=== PATIENT | female | born 1990 | race American Indian/Alaskan Native ===

== ENCOUNTER 2017-04-05 22:02 | Emergency (ER) | payer MEDICAID, OTHER ==
[2017-04-05 22:10] VITALS: BMI 53.0
--- NOTE | 2017-04-05 22:16 | ED PDOC ---
Arrival/HPI - General Time Seen by Provider: 04/05/17 22:10 Historian: Patient - History of Present Illness Narrative History of Present Illness (Text): 04/05/17 22:11 27 y/o female, no significant pmh, nkda, c/o possible tampon inside her vaginal canal x 1 day. Pt. stated that her period just started today, use one tampon and put it inside of her, stated that she didn't remove it and can not find, no vaginal discomfort, no pelvic or abdominal pain, no nausea or vomiting, no fever or chills, no headache or night sweat, no dizziness, no other medical or psychological complaints. Past Medical History - Provider Review Nursing Documentation Reviewed: Yes - Psychiatric Hx Substance Use: No - Surgical History Hx Section: Yes - Anesthesia Hx Anesthesia: Yes Hx Anesthesia Reactions: No Hx Malignant Hyperthermia: No Family/Social History - Physician Review Nursing Documentation Reviewed: Yes Family/Social History: Unknown Family HX Smoking Status: Never Smoked Hx Alcohol Use: Yes Hx Substance Use: No Allergies/Home Meds Allergies/Adverse Reactions: Allergies No Known Allergies Allergy (Verified 07/21/16 08:39) Home Medications: Home Meds Medication Instructions Recorded Confirmed No Known Home Med 07/21/16 04/05/17 Review of Systems - Review of Systems Constitutional: absent: Fatigue, Fevers Eyes: absent: Vision Changes ENT: absent: Hearing Changes Respiratory: absent: SOB, Cough Cardiovascular: absent: Chest Pain Gastrointestinal: absent: Abdominal Pain, Nausea, Vomiting Genitourinary Female: absent: Dysuria, Frequency, Hematuria, Urine Output Changes, Vaginal Bleeding, Vaginal Discharge Musculoskeletal: absent: Arthralgias, Back Pain Skin: absent: Rash, Pruritis Neurological: absent: Headache, Dizziness Physical Exam Vital Signs Temp Pulse Resp BP Pulse Ox 04/05/17 22:23 98.7 F 90 20 189/112 H 98 - Systems Exam Head: Present: Atraumatic, Normocephalic Pupils: Present: PERRL Extroacular Muscles: Present: EOMI Conjunctiva: Present: Normal Mouth: Present: Moist Mucous Membranes Neck: Present: Normal Range of Motion Respiratory/Chest: Present: Clear to Auscultation, Good Air Exchange. No: Respiratory Distress, Accessory Muscle Use Cardiovascular: Present: Regular Rate and Rhythm, Normal S1, S2. No: Murmurs Abdomen: Present: Normal Bowel Sounds. 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 There is no visible or palpable foreign bodies. ). No: Vaginal Discharge, Vaginal Bleeding, Vaginal Lesions, Adenexal Tenderness, Adenexal Mass, Cervical Motion Tendernes, Odor Back: Present: Normal Inspection Upper Extremity: Present: Normal Inspection. No: Cyanosis, Edema Lower Extremity: Present: Normal Inspection. No: Edema Neurological: Present: GCS=15, CN II-XII Intact, Speech Normal Skin: Present: Warm, Dry, Normal Color. No: Rashes Psychiatric: Present: Alert, Oriented x 3, Normal Insight, Normal Concentration Medical Decision Making ED Course and Treatment: 04/05/17 22:18 -Urine hcg negative -Vaginal speculum inspection at 8 different angles with no visible foreign bodies, no palpable foreign bodies, pt. feels comfortable and better now which she request to be discharge home. -Discharge home with education on follow up with your own pmd and obgyn within 2 days, return to the ER for any new or worsening signs or symptoms. - PA / INSPECTOR OF WEIGHTS AND MEASURES / Resident Statement / has reviewed & agrees with the documentation as recorded. Disposition/Present on Arrival - Present on Arrival Any Indicators Present on Arrival: No History of DVT/PE: No History of Uncontrolled Diabetes: No Urinary Catheter: No History of Decub. Ulcer: No History Surgical Site Infection Following: None - Disposition Have Diagnosis and Disposition been Completed?: Yes Diagnosis: Normal pelvic exam Disposition: HOME/ ROUTINE Disposition Time: 22:56 Patient Plan: Discharge Condition: IMPROVED Additional Instructions: -Discharge home with education on follow up with your own pmd and obgyn within 2 days, return to the ER for any new or worsening signs or symptoms. Referrals: PCP,ALICE [Primary Care Provider] - Follow up with primary Cleveland Evans DO [Staff Provider] - Follow up with primary Forms: WORK NOTE
[2017-04-05 22:30] VITALS: PULSE 90; TEMP 98.7
[2017-04-05 23:41] VITALS: BP 142/95
[2017-04-05 23:49] VITALS: RESP 18; O2SAT 99
== END 2017-04-05 23:49 | disposition home or self-care (01) ==
LOC: ED 22:02
DX: Z01.419 Encounter for gynecological examination (general) (routine) without abnormal findings (principal)

== ENCOUNTER 2018-01-13 11:46 | Emergency (ER) | payer OTHER ==
[2018-01-13 12:21] VITALS: BMI 58.5
[2018-01-13 12:38] VITALS: RESP 18; TEMP 98.2
--- NOTE | 2018-01-13 12:47 | ED PDOC ---
Arrival/HPI - General Chief Complaint: Breast Problem Time Seen by Provider: 01/13/18 12:24 Historian: Patient - History of Present Illness Narrative History of Present Illness (Text): 01/13/18 12:36 27yo female with no past medical history who present with complaint of breast soreness and pruritic rash. Notes that her LMP was December 24, but she is having symptoms of . States that the home test she took at home was negative, but she thinks she might be . she also noted that she had tubal ligation in 2014. States the rash started yesterday. Denies any new lotion /detergent/food/medication/, any other inciting factors, SOB, tongue swelling, chest pain, abdominal pain, urinary symptoms, breast dimple, nipple discharge, any other complaint. Past Medical History - Provider Review Nursing Documentation Reviewed: Yes - Infectious Disease Hx of Infectious Diseases: None - Gastrointestinal Hx Gall Bladder Disease: Yes - Psychiatric Hx Substance Use: No - Surgical History Hx Section: Yes - Anesthesia Hx Anesthesia: Yes Hx Anesthesia Reactions: No Hx Malignant Hyperthermia: No Family/Social History - Physician Review Nursing Documentation Reviewed: Yes Family/Social History: Unknown Family HX Smoking Status: Never Smoked Hx Alcohol Use: Yes Hx Substance Use: No Allergies/Home Meds Allergies/Adverse Reactions: Allergies No Known Allergies Allergy (Verified 01/13/18 12:25) Review of Systems - Physician Review All systems were reviewed & negative as marked: Yes - Review of Systems Constitutional: Normal Eyes: Normal ENT: Normal Respiratory: Normal Cardiovascular: Normal Gastrointestinal: Normal Genitourinary Female: Normal Musculoskeletal: Normal Skin: Rash, Pruritis Neurological: Normal Endocrine: Normal Hemo/Lymphatic: Normal Psychiatric: Normal Physical Exam Vital Signs Reviewed: Yes Vital Signs Temp Pulse Resp BP Pulse Ox 01/13/18 13:45 76 18 136/88 98 01/13/18 11:49 98.2 F 85 18 147/91 H 97 Temperature: Afebrile Blood Pressure: Normal Pulse: Regular Respiratory Rate: Normal Appearance: Positive for: Well-Appearing, Non-Toxic, Comfortable Pain Distress: None Mental Status: Positive for: Alert and Oriented X 3 - Systems Exam Head: Present: Atraumatic, Normocephalic Pupils: Present: PERRL Extroacular Muscles: Present: EOMI Conjunctiva: Present: Normal Mouth: Present: Moist Mucous Membranes Neck: Present: Normal Range of Motion Respiratory/Chest: Present: Clear to Auscultation, Good Air Exchange. No: Respiratory Distress, Accessory Muscle Use Cardiovascular: Present: Regular Rate and Rhythm, Normal S1, S2. No: Murmurs Abdomen: No: Tenderness, Distention, Peritoneal Signs Back: Present: Normal Inspection Upper Extremity: Present: Normal Inspection. No: Cyanosis, Edema Lower Extremity: Present: Normal Inspection. No: Edema Neurological: Present: GCS=15, CN II-XII Intact, Speech Normal Skin: Present: Warm, Dry, Rashes (Few papular skin colored rash noted on b/l arm ), Normal Color Psychiatric: Present: Alert, Oriented x 3, Normal Insight, Normal Concentration Medical Decision Making ED Course and Treatment: 01/13/18 19:48 PT was not in any distress in emergency department . She noted that her LMP was December 24, which makes chance of to be very small. Upreg was negative and result was DW the pt. She was advised to follow up with her CREMATOR for a repeat test when she miss her period. She was treated with prednisone and Benadryl for the dermatitis. - Lab Interpretations Lab Results: Lab Results 01/13/18 12:50: Urine HCG, Qual Negative - Medication Orders Current Medication Orders: Discontinued Medications Diphenhydramine HCl (Benadryl) 25 mg PO STAT STA Stop: 01/13/18 12:52 Last Admin: 01/13/18 13:30 Dose: 25 mg Prednisone (Prednisone Tab) 40 mg PO STAT STA Stop: 01/13/18 12:52 Last Admin: 01/13/18 13:30 Dose: 40 mg Disposition/Present on Arrival - Present on Arrival Any Indicators Present on Arrival: No History of DVT/PE: No History of Uncontrolled Diabetes: No Urinary Catheter: No History of Decub. Ulcer: No History Surgical Site Infection Following: None - Disposition Have Diagnosis and Disposition been Completed?: Yes Diagnosis: Bilateral mastodynia, Contact dermatitis Disposition: HOME/ ROUTINE Disposition Time: 13:30 Patient Plan: Discharge Condition: STABLE Discharge Instructions (ExitCare): Contact Dermatitis (DC), Mastalgia (DC), Chest Pain (ED) Additional Instructions: Follow up with your CREMATOR/Tool Room Supervisor Return to emergency department for any new or worsening symptoms Prescriptions: DiphenhydrAMINE [Benadryl] 25 mg PO Q4 #20 cap predniSONE [Prednisone] 20 mg PO DAILY #4 tab Referrals: Marissa Bell MD [Primary Care Provider] - Follow up with primary Kilo Lopez MD [Staff Provider] - Follow up with primary Forms: [employer] (Nepalese)
[2018-01-13] MEDS ORDERED: DiphenhydrAMINE 12.5 mg/5 ml LIQ UD (5 ml) PO STA (12:51)
[2018-01-13 13:46] VITALS: BP 136/88; PULSE 76; O2SAT 98
== END 2018-01-13 13:45 | disposition home or self-care (01) ==
LOC: ED 11:46
DX: L25.9 Unspecified contact dermatitis, unspecified cause (principal); N64.4 Mastodynia

== ENCOUNTER 2018-06-22 13:32 | Emergency (ER) | payer OTHER ==
[2018-06-22 13:35] VITALS: BMI 58.5
[2018-06-22] MEDS ORDERED: DiphenhydrAMINE 50 mg/ml Inj IVP STA (14:34)
[2018-06-22] MEDS ORDERED: Sodium Chloride 0.9% 1,000 ML IV STA (14:35)
--- NOTE | 2018-06-22 14:39 | ED PDOC ---
Arrival/HPI - General Chief Complaint: Headache Historian: Patient - History of Present Illness Narrative History of Present Illness (Text): 06/22/18 14:36 28 y/o female, pmh including chronic migraine, nkda, c/o headache x 3 days with no fall or trauma. Throbbing rt. unilateral, aggravated by bright light and loug sound, feels nausea, no neck stiffness, no recent traveling, no fever or chills, no palpitation, no chest pain or shortness of breath, no other medical or psychological complaints. Past Medical History - Provider Review Nursing Documentation Reviewed: Yes - Infectious Disease Hx of Infectious Diseases: None - Gastrointestinal Hx Gall Bladder Disease: Yes - Psychiatric Hx Substance Use: No - Surgical History Hx Section: Yes - Anesthesia Hx Anesthesia: Yes Hx Anesthesia Reactions: No Hx Malignant Hyperthermia: No Family/Social History - Physician Review Nursing Documentation Reviewed: Yes Family/Social History: Unknown Family HX Smoking Status: Current Some Days Smoker Hx Alcohol Use: Yes Frequency of alcohol use: Socially Hx Substance Use: No Allergies/Home Meds Allergies/Adverse Reactions: Allergies No Known Allergies Allergy (Verified 06/22/18 14:19) Review of Systems - Review of Systems Constitutional: absent: Fatigue, Fevers Eyes: absent: Vision Changes ENT: absent: Hearing Changes Respiratory: absent: SOB, Cough Cardiovascular: absent: Chest Pain Gastrointestinal: Nausea. absent: Abdominal Pain, Vomiting Neurological: Headache Psychiatric: absent: Anxiety, Depression, Suicidal Ideation Physical Exam - Systems Exam Head: Present: Atraumatic, Normocephalic, Other (no temporal artery tenderness and no jaw claudication). No: Tenderness, Contusion, Swelling, Ecchymosis, Abrasion, Laceration Pupils: Present: PERRL Extroacular Muscles: Present: EOMI Conjunctiva: Present: Normal Ears: Present: NORMAL TM, Normal Canal. No: Erythema Mouth: Present: Moist Mucous Membranes Pharnyx: No: ERYTHEMA, EXUDATE, TONSILS ENLARGED Nose (External): Present: Atraumatic. No: Abrasion, Contusion, Laceration Nose (Internal): Present: Normal Inspection, No Active Bleeding. No: Rhinorrhea, Septal Hematoma, Epistaxis Neck: Present: Normal Range of Motion, Trachea Midline. No: Meningeal Signs, MIDLINE TENDERNESS, Paraspinal Tenderness, Lymphadenopathy Respiratory/Chest: Present: Clear to Auscultation, Good Air Exchange. No: Respiratory Distress, Accessory Muscle Use Cardiovascular: Present: Regular Rate and Rhythm, Normal S1, S2. No: Murmurs Abdomen: No: Tenderness, Distention, Peritoneal Signs Back: Present: Normal Inspection Upper Extremity: Present: Normal Inspection. No: Cyanosis, Edema Lower Extremity: Present: Normal Inspection. No: Edema Neurological: Present: GCS=15, CN II-XII Intact, Speech Normal, Motor Func Grossly Intact, Gait Normal, Memory Normal, Other (no drift, no focal neurological deficits. ) Skin: Present: Warm, Dry, Normal Color. No: Rashes Psychiatric: Present: Alert, Oriented x 3, Normal Insight, Normal Concentration Medical Decision Making ED Course and Treatment: 06/22/18 14:38 -labs -ct head -IVF/benadryl/reglan/tylenol -observe and reassess 06/22/18 17:44 -Urine hcg is negative -Labs show no acute findings -Mg within normal limit -UA show no UTI -CT head No acute intracranial pathology identified. -Pt. feels completely relief, no focal neurological deficits, advised to follow up with the pmd for BP recheck tomorrow and low salt diet -Discharge home with fioriocet, low salt diet, stay hydrated, follow up with your own pmd and neurologist within 2 days, return to the ER for any new or worsening signs or symptoms. 18 17:45 - RAD Interpretation Radiology Orders: 06/22/18 14:34 HEAD W/O CONTRAST [CT] Stat Date of service: 06/22/2018 PROCEDURE: CT HEAD WITHOUT CONTRAST. HISTORY: rt. sided headache COMPARISON: None available. TECHNIQUE: Axial computed tomography images were obtained through the head/brain without intravenous contrast. Radiation dose: Total exam DLP = 924.23 mGy-cm. This CT exam was performed using one or more of the following dose reduction techniques: Automated exposure control, adjustment of the mA and/or kV according to patient size, and/or use of iterative reconstruction technique. FINDINGS: HEMORRHAGE: No intracranial hemorrhage. BRAIN: No mass effect or edema. The noriega-white matter differentiation appears intact. VENTRICLES: No hydrocephalus. CALVARIUM: Unremarkable. PARANASAL SINUSES: Unremarkable as visualized. No significant inflammatory changes. MASTOID AIR CELLS: Unremarkable as visualized. No inflammatory changes. OTHER FINDINGS: None. IMPRESSION: No acute intracranial pathology identified. - Medication Orders Current Medication Orders: Acetaminophen (Tylenol 325mg Tab) 650 mg PO STAT STA Stop: 06/22/18 14:35 Diphenhydramine HCl (Benadryl) 50 mg IVP STAT STA Stop: 06/22/18 14:35 Sodium Chloride (Sodium Chloride 0.9%) 1,000 mls @ 999 mls/hr IV .Q1H1M STA Stop: 06/22/18 15:35 Metoclopramide HCl (Reglan) 10 mg IVP STAT STA Stop: 06/22/18 14:35 - PA / SUPERVISOR [employer] / Resident Statement / has reviewed & agrees with the documentation as recorded. Disposition/Present on Arrival - Present on Arrival Any Indicators Present on Arrival: No History of DVT/PE: No History of Uncontrolled Diabetes: No Urinary Catheter: No History of Decub. Ulcer: No History Surgical Site Infection Following: None - Disposition Have Diagnosis and Disposition been Completed?: Yes Diagnosis: Migraine Disposition: HOME/ ROUTINE Disposition Time: 17:46 Patient Plan: Discharge Condition: IMPROVED Additional Instructions: -Discharge home with fioriocet, low salt diet, stay hydrated, follow up with your own pmd and neurologist within 2 days, return to the ER for any new or worsening signs or symptoms. 18 17:45 Prescriptions: Acetaminophen/Butalbital/Caf [Fioricet] 1 tab PO QID PRN #30 tab PRN Reason: Other Referrals: Garfield Velázquez MD [Staff Provider] - Follow up with primary [facility] [place] [Outside] - Follow up with primary Forms: [employer] (Lao), WORK NOTE
[2018-06-22 14:54] VITALS: TEMP 98.1
[2018-06-22 15:08] LABS: PH,URINE 7.5 (4.7-8.0); URINE APPEARANCE CLEAR (CLEAR); URINE BILIRUBIN NEGATIVE (NEGATIVE); URINE BLOOD NEGATIVE (NEGATIVE); URINE COLOR LIGHT YELLOW (YELLOW); URINE GLUCOSE (UA) NEGATIVE (NEGATIVE); URINE LEUKOCYTE ESTERASE NEGATIVE Leu/uL (NEGATIVE); URINE PROTEIN NEGATIVE mg/dL (<30 mg/dL); URINE UROBILINOGEN 0.2 E.U./dL (<1 E.U./dL)
[2018-06-22 15:59] LABS: BASO # 0.02 K/mm3 (0.0-2.0); BASO % 0.2 % (0.0-3.0); EOS # 0.1 (0.0-0.7); EOS % 0.7 % (1.5-5.0); GRAN # 6.11 (1.4-6.5); GRAN % 64.3 % (50.0-68.0); HEMOGLOBIN 11.9 g/dL (12.0-16.0); LYMPH # 2.3 (1.2-3.4); LYMPH % 23.7 % (22.0-35.0); MEAN CELL VOLUME 80.6 fl (80.0-105.0); MEAN CORPUSCULAR HGB CONC 32.2 g/dl (31.0-37.0); MEAN PLATELET VOLUME 10.5 fl (7.0-11.0); MONO # 1.1 (0.1-0.6); MONO % 11.1 % (1.0-6.0); RBC 4.58 10^6/uL (3.5-6.1); RED CELL DISTRIBUTION WIDTH 13.3 % (11.5-14.5); WHITE BLOOD COUNT 9.5 10^3/uL (4.5-11.0)
[2018-06-22 16:10] LABS: ALBUMIN 4.1 g/dL (3.0-4.8); ALT/SGPT 25 U/L (7-56); AST/SGOT 31 U/L (14-36); BLOOD UREA NITROGEN 13 mg/dL (7-21); GFR NON-AFRICAN AMERICAN > 60
[2018-06-22 16:33] VITALS: PULSE 83
--- NOTE | 2018-06-22 17:41 | CT ---
Date of service: 06/22/2018 PROCEDURE: CT HEAD WITHOUT CONTRAST. HISTORY: rt. sided headache COMPARISON: None available. TECHNIQUE: Axial computed tomography images were obtained through the head/brain without intravenous contrast. Radiation dose: Total exam DLP = 924.23 mGy-cm. This CT exam was performed using one or more of the following dose reduction techniques: Automated exposure control, adjustment of the mA and/or kV according to patient size, and/or use of iterative reconstruction technique. FINDINGS: HEMORRHAGE: No intracranial hemorrhage. BRAIN: No mass effect or edema. The noriega-white matter differentiation appears intact. VENTRICLES: No hydrocephalus. CALVARIUM: Unremarkable. PARANASAL SINUSES: Unremarkable as visualized. No significant inflammatory changes. MASTOID AIR CELLS: Unremarkable as visualized. No inflammatory changes. OTHER FINDINGS: None. IMPRESSION: No acute intracranial pathology identified.
[2018-06-22 19:02] VITALS: BP 150/90; RESP 16; O2SAT 98
== END 2018-06-22 18:45 | disposition home or self-care (01) ==
LOC: ED 13:32
DX: G43.909 Migraine, unspecified, not intractable, without status migrainosus (principal)
CPT/HCPCS: 70450; 80053; 81003; 83735; 85025; 96361; 96374; 96375; 99285; J1200; J2765; J7030